=== PATIENT | female | born 1945 | race African-American/Black ===

== ENCOUNTER 2016-07-16 01:01 | Inpatient (IN) | payer OTHER ==
--- NOTE | 2016-07-16 01:34 | PROVIDER DOCUMENTATION ---
HPI-Chest Pain - General Source: patient - History of Present Illness-CP Location: reports: other (left sided) Chest Pain Radiation: reports: no radiation Quality of Pain: reports: aching Severity in ED: mild Onset/Duration: 3 days ago Timing: still present Context/Activities at Onset: reports: none Modifying Factors: improves with: lying down (laying down flat makes it worse) Associated Symptoms: reports: shortness of breath Nitro Today/Relief: no nitro taken today Aspirin Treatment Today: no aspirin today Prior Chest Pain/Cardiac Workup: reports: no prior chest pain, no prior cardiac workup Similar Symptoms Previously?: No Recently Seen Here or By Another Healthcare Provider: No <Rolly Mcclendon - Last Filed: 07/16/16 02:29> <Leandro Leon - Last Filed: 07/16/16 03:36> - General Chief Complaint: Chest Pain Stated Complaint: CHEST PAIN Time Seen by Provider: 07/16/16 01:15 Allergies/Adverse Reactions: Patient Allergies Allergy/AdvReac Type Severity Reaction Status Date / Time No Known Allergies Allergy Verified 07/16/16 02:34 - History of Present Illness-CP Nature of Presenting Problem: 71 y/o F presents to the ED c/o left sided chest pain and shortness of breath. onset x3 days ago. denies sob, cough, fever and all other symptoms. no prior cardiac workup. hx of diabetes. no other voiced complaints. (Rolly Mcclendon) Review of Systems - Adult - REVIEW OF SYSTEMS - ADULT Constitutional: denies: chills, fever Eyes: reports: no symptoms reported Ears, Nose, Mouth & Throat: denies: sinus problem, throat pain Cardiovascular: reports: chest pain. denies: syncope Respiratory: reports: shortness of breath. denies: wheezing Gastrointestinal: denies: diarrhea, nausea, vomiting Genitourinary: denies: dysuria, frequency Musculoskeletal: denies: back pain, neck pain Integumentary: denies: itching, rash Neurological: denies: dizziness/vertigo, headache/migraines Psychiatric: reports: no symptoms reported Endocrine: reports: no symptoms reported Hematologic/Lymphatic: reports: no symptoms reported Allergic/Immunologic: reports: no symptoms reported <Rolly Mcclendon - Last Filed: 07/16/16 02:29> Past History - Adult - PAST MEDICAL HISTORY-ADULT Review of Records: reports: Nursing Assessment Review, Medications Reviewed, Social history reviewed & non-contributory. Major Childhood Illnesses: reports: denies history Cardiovascular: reports: HTN Respiratory: reports: denies history Gastrointestinal: reports: denies history Genitourinary: reports: denies history Musculoskeletal: reports: denies history Neurological: reports: denies history Psychiatric: reports: denies history Endocrine/Immune: reports: Diabetes Other Conditions: reports: denies history - PRIOR SURGERIES/PROCEDURES Surgical/Procedure History: reports: hysterectomy - IMMUNIZATION STATUS Childhood Immunizations: See Nurse Assessment Flu Vaccine: See Nurse Assessment - SOCIAL HISTORY Smoking: denies Substance Use: none/never <Rolly Mcclendon - Last Filed: 07/16/16 02:29> Physical Exam-General - PHYSICAL EXAM-ADULT Initial Vital Signs Reviewed: Yes - CONSTITUTIONAL General Appearance: alert, no apparent distress - EYES Eyes: PERRL/EOMI, pink conjunctivae - HEAD, EARS, NOSE, MOUTH & THROAT HENMT: moist mucous membranes, normal ENT inspection - NECK Neck: full range of motion, normal inspection - RESPIRATORY Respiratory: no respiratory distress, decreased breath sounds (no breath sounds on left), other (left side chest wall tenderness to palpation) - CARDIOVASCULAR Cardiovascular: normal peripheral pulses, regular rate, rhythm - GASTROINTESTINAL (ABDOMEN) Abdominal Exam: normal bowel sounds, non tender, soft - MUSCULOSKELETAL Extremity: normal inspection, no pedal edema, normal capillary refill - SKIN Integumentary: normal color, warm/dry - NEUROLOGIC Neurologic: grossly normal, no motor/sensory deficits - PSYCHIATRIC Psych/Mental Status: normal mood/affect, oriented x 3 <Rolly Mcclendon - Last Filed: 07/16/16 02:29> Progress - EKG 1 Time of EKG reading by physician:: 01:18 EKG Read and Signed by:: Leandro Leon EKG Interpretation (*Must complete 3 of following elements*): Abnormal Rate: 56 Rhythm: sinus bradycardia [place]: normal ST Wave: non-specific ST changes - XRAY 1 XRAY Study: Chest Impression: Abnormal XRAY Interpretation: left upper lobe pneumothorax <Rolly Mcclendon - Last Filed: 07/16/16 02:29> - CT/MRI 1 CT Study: Thorax (60% PNEUMO W 6.5CM BLEB) - CONSULTS/PCP/HOSPITALIST Notification #1 *Consult/PCP/Hospitalist*: CANDE Time Discussed: 03:30 Consult Disposition: Will see in ED <Leandro Leon - Last Filed: 07/16/16 03:36> Departure <Rolly Mcclendon - Last Filed: 07/16/16 02:29> - Departure Time of Disposition Order: 03:35 Certified Medical Emergency: Emergent <Leandro Leon - Last Filed: 07/16/16 03:36> - Departure DIAGNOSIS: Pneumothorax on left Disposition: ADMITTED INPATIENT 09 Condition: Fair Referrals: None,PCP [Primary Care Provider] - Attestation - Scribe Verification/Attestation Scribe:: Rolly Mcclendon Acting as Scribe for:: Leandro Leon Scribe documention review:: This chart was documented by a scribe and accurately reflects the service the provider performed and the decisions made by the provider. <Rolly Mcclendon - Last Filed: 07/16/16 02:29> Physician Attestation
[2016-07-16 01:46] LABS: MANUAL DIFF NEEDED? NO
--- NOTE | 2016-07-16 01:54 | EKG Report ---
Test Performed on : 07/16/2016 01:18:51 AM Test Reason : cp Blood Pressure : / mmHG Vent. Rate : 056 BPM Atrial Rate : 056 BPM P-R Int : 132 ms QRS Dur : 060 ms QT Int : 432 ms P-R-T Axes : 080 076 059 degrees QTc Int : 416 ms Sinus bradycardia. Nonspecific ST abnormality Abnormal ECG No previous ECGs available Unconfirmed Result
[2016-07-16 02:13] LABS: AGAP 11; ALBUMIN 4.3 g/dL (3.5-5.0); ALKALINE PHOSPHATASE 55 U/L (32-104); BUN 13 mg/dL (8-22); CALCIUM 9.8 mg/dL (8.8-10.2); CHLORIDE 104 mmol/L (98-107); COSMO 279; GOT 19 U/L (10-30); GPT 22 U/L (10-36); POTASSIUM 4.1 mmol/L (3.5-5.1); SODIUM 140 mmol/L (136-145); TCO2 26 mmol/L (25-35); TOTAL PROTEIN 6.4 g/dL (6.3-8.3)
[2016-07-16 02:14] LABS: BASO% 0.4 % (0.0-0.8); EOS# 0.22 X1000 (0.0-0.7); HEMATOCRIT 39.3 % (37.0-47.0); IMM GRAN# 0.03 X1000 (0.0-0.04); IMM GRAN% 0.3 % (0.0-0.5); LYMPH# 3.47 X1000 (1.2-3.4); LYMPH% 31.1 % (20.5-51.1); MCH 29.7 PG (27-31); MCHC 33.1 g/dL (33-37); MCV 89.9 FL (81-99); MONO# 0.92 X1000 (0.11-0.59); MONO% 8.2 % (1.7-9.3); MPV 10.5 FL (7.4-10.4); PLT 242 X1000 (130-400); RBC 4.37 XMIL (4.2-5.4)
[2016-07-16] MEDS ORDERED: MORPHINE IV ONE ×2 (02:18→04:59)
[2016-07-16] MEDS ORDERED: SODIUM CHLORIDE 0.9% INJ ONE (02:18)
[2016-07-16] MEDS ORDERED: PHENERGAN IV ONE (02:18)
[2016-07-16] MEDS ORDERED: XYLOCAINE-MPF 1% 0 ML ONE (04:19)
[2016-07-16] MEDS ORDERED: XYLOCAINE-MPF 1%/EPI 1:200,000 ONE (04:20)
[2016-07-16] MEDS ORDERED: APRESOLINE ONE (05:02)
[2016-07-16] MEDS ORDERED: APRESOLINE IV ONE (05:03)
[2016-07-16] MEDS ORDERED: MORPHINE ONE (05:03)
[2016-07-16] MEDS ORDERED: VASOTEC IV ONE (05:03)
[2016-07-16] MEDS ORDERED: VASOTEC ONE (05:04)
[2016-07-16] MEDS ORDERED: ZOFRAN IV PRN (05:25)
--- NOTE | 2016-07-16 05:36 | OPERATIVE NOTE ---
PROCEDURE DATE: 07/16/2016 PREOPERATIVE DIAGNOSIS: Left pneumothorax. POSTOPERATIVE DIAGNOSIS: Left pneumothorax. PRINCIPLE PROCEDURE: Placement of #32-Zambian left chest tube. SURGEON: Gayle Salgado MD. ANESTHESIA: Local. ESTIMATED BLOOD LOSS: 10 mL. DRAINS: None. INDICATIONS: Opal Stinson is a 71-year-old morbidly obese, black female who has had previous left lung surgery in 1986. She presented with a history of 3 days of chest pain and a chest x-ray which documented a 60% pneumothorax but also a bleb involving her remaining lung. She did not have much shortness of breath but she was symptomatic with chest pain. We felt we needed to place a chest tube. DESCRIPTION OF PROCEDURE: The patient was in the emergency department at [facility]. We placed her in the sitting position on her stretcher and her left chest was prepped and draped within the sterile field. It appeared that her lung could have been scarred inferiorly, posteriorly and laterally. She also had this large bleb by CT scan and chest x-ray so I decided to place a chest tube more superior and anterior on her chest and kind of above her breast. She had a well-healed left thoracotomy scar. We used 1% lidocaine with epinephrine for local anesthetic. I made a small incision above her breast anteriorly on her chest and with a 10 blade scalpel. Then, I used Marques scissors to go above the rib and entered the chest. We did get a gush of air and I placed a 32-Zambian chest tube with the help of a Shruthi clamp above the rib into the left chest and directed it superiorly and anteriorly. I secured it to the skin with 0 silk stitch and dressing was applied. We got a postprocedure chest x-ray and it seemed like her pneumothorax had improved. We did not have a persistent air leak. She tolerated the procedure well. Plans are to keep this chest tube on - 20 cm of suction and admit her to the hospital.
--- NOTE | 2016-07-16 05:37 | HISTORY AND PHYSICAL ---
DATE OF ADMISSION: 07/16/2016 HISTORY OF PRESENT ILLNESS: Ms. Opal Stinson is a 71-year-old, black female who has a history of left lung surgery in 1986. It is unclear of why she had that lung surgery. She presented to [facility] emergency department with a 3-day history of increasing left chest pain and some shortness of breath. A chest x-ray documented a pneumothorax and this was confirmed with a chest CT scan. It was about a 60% pneumothorax. We were asked to see her. PAST MEDICAL HISTORY: Depression, diabetes, obesity. MEDICATIONS: Unknown. ALLERGIES: No known drug allergies. SOCIAL HISTORY: Her was present. She lives here in [place]. She does not smoke. REVIEW OF SYSTEMS: A 14-point review of systems was performed and was essentially negative except for the history of present illness. FAMILY HISTORY: Noncontributory. PHYSICAL EXAMINATION: General: On examination, Ms. Stinson is a pleasant, older, black female who is overweight. She was in no acute distress. HEENT Examination: She dyes her hair red. She had no jaundice, no oral lesions. No cervical or supraclavicular lymphadenopathy. Heart: Had a regular rate. It was slow. Respiratory: She had decreased breath sounds on the left. She had normal right lung breath sounds. Abdomen: Was protuberant but not tender. No costovertebral tenderness. Rectal/Vaginal: Examinations were not performed. Extremities: She does have palpable peripheral pulses. No peripheral edema. Neurological: She is alert, oriented x3, and appropriate. IMPRESSION: Left pneumothorax in a lady who has had previous left lung surgery years ago. She also has a large bleb involving her remaining lung tissue. She is obese. PLAN: We will place an anterior chest tube in the emergency department using local anesthetic. I have discussed the procedure in detail with the patient and her including the need for a chest tube and its risks of bleeding and infection. They understand the need for the chest tube and want to proceed.
--- NOTE | 2016-07-16 07:30 | Diag Imaging Result Document ---
PROCEDURE NAME: CHEST-PORTABLE - 07/16/2016 AP PORTABLE CHEST, 07/16/2016 AT 0447 HOURS: FINDINGS: There is a left chest tube. There is subsegmental atelectasis in the upper and lower lobes on the left. The right lung is stable in appearance since the previous study at 0228 hours. The pneumothorax on the left appears to be evacuated, however, there is some soft-tissue emphysema in the left chest wall. IMPRESSION: Chest tube placement with evacuation of the pneumothorax on the left. Continued atelectasis in the left upper and lower lobes.
--- NOTE | 2016-07-16 08:10 | Diag Imaging Result Document ---
PROCEDURE NAME: CHEST-2 VIEWS - 07/16/2016 TWO VIEWS OF THE CHEST: FINDINGS: There is a large pneumatocele or bulla present posteriorly in the left lower lobe. There is a large apical pneumothorax with some pneumothorax also subpulmonic posteriorly. The right lung is clear. There are no previous studies. The patient has subsequently undergone placement of a left chest tube. IMPRESSION: Left pneumothorax and large pneumatocele.
--- NOTE | 2016-07-16 08:26 | PROGRESS NOTE ---
DATE: 07/16/2016 SUBJECTIVE: Ms. Opal Stinson, early this morning I placed an anterior left chest tube in the emergency department at [place] for a 60% pneumothorax. She has had a history of left thoracotomy in [address] [facility] Emergency Department with left chest pain and some shortness of breath. She underwent a CT scan of her chest and also a chest x-ray which documented this pneumothorax and I placed a 32-Vincentian chest tube anteriorly. Postprocedure film documented that the pneumothorax had resolved. There was no ongoing air leak from the chest tube and its placement seemed to be satisfactory. We felt we should transfer her to [facility] for further care of her chest tube and in case I had to bring her to surgery to manipulate this chest tube or place another 1. I reviewed her films this morning with Dr. Bennett, our radiologist. PLAN: I will give her a diet. I will take her chest tube off suction because there is no air leak. We will repeat a chest x-ray either this afternoon or in the morning and decide what to do with her chest tube.
[2016-07-16] MEDS: MORPHINE IV PRN ×3 (08:28→21:11)
--- NOTE | 2016-07-16 08:37 | Diag Imaging Result Document ---
PROCEDURE NAME: CT THORAX W/O CONTRAST - 07/16/2016 CT OF THE CHEST WITHOUT CONTRAST: FINDINGS: There is a large left pneumothorax. This has been subsequently evacuated with a chest tube. There is a fairly large thin-walled air-containing cystic lesion in the left lower lobe. There are multiple surgical clips in the wall of this cyst and it may be a pneumatocele secondary to previous trauma or surgery. Some mild pleural thickening is present in the apex. There is also some compressive atelectasis adjacent to the pneumatocele. Small loculations of gas are seen in the inferolateral left pleural space. The right lung is essentially clear. There is an accessory fissure dividing the right lower lobe. There is a small pericardial effusion seen anterior to the right ventricle. There are some calcifications in the left anterior descending artery. There is no evidence of significant adenopathy. The regional skeleton appears to be intact. There are no previous studies. IMPRESSION: Pneumothorax and atelectasis on the left with what appears to be a pneumatocele at the left lower lobe.
[2016-07-16] MEDS: NORCO-7.5 PO PRN ×3 (10:31→22:30)
[2016-07-16] MEDS: NS 1,000 ML IV SCH (21:11)
[2016-07-17] MEDS: MORPHINE IV PRN (00:48)
[2016-07-17] MEDS: NS 1,000 ML IV SCH ×3 (05:29→14:02)
[2016-07-17] MEDS: NORCO-7.5 PO PRN ×4 (05:32→22:22)
--- NOTE | 2016-07-17 08:50 | Diag Imaging Result Document ---
PROCEDURE NAME: CHEST-2 VIEWS - 07/17/2016 PA AND LATERAL RADIOGRAPH OF THE CHEST: COMPARISON: 07/16/2016. FINDINGS: The left chest tube remains in place. However, the pneumothorax that was not perceptible on the most recent prior study after insertion of the chest tube is now larger. It probably occupies at least 40% of the left hemithorax. There is a large posterior air-filled bleb seen on previous studies as well. This air-filled bleb along with the pneumothorax probably occupies at least 70% of the left hemithorax. The right lung is unchanged. Cardiac silhouette is stable. IMPRESSION: Interval significant increase in size of the left-sided pneumothorax as described.
--- NOTE | 2016-07-17 16:49 | PROGRESS NOTE ---
DATE: 07/17/2016 Ms. 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 I did this in the emergency department at [facility]. It was a difficult placement because the patient's obesity and she had previous left thoracotomy. However, the tube resolved her pneumothorax and we transferred her from [place] to [facility] so that I could watch her chest tube more closely. This morning she had a repeat chest x-ray because we had placed her tube on water seal and her pneumothorax recurred. She is now symptomatic with shortness of breath and I am not convinced that the chest tube I placed yesterday is functional, although with chest x-ray it appears to be in the left chest. We placed it back on suction but that did not improve her symptoms. We will repeat a chest x-ray. But if she still has a pneumothorax, I need to change out the chest tube and we will plan to do this in the OR where she will be more comfortable. I have discussed this with the patient and her family at the bedside.
[2016-07-17] MEDS ORDERED: DIPRIVAN 1% ONE (16:55)
[2016-07-17] MEDS ORDERED: XYLOCAINE 1%/EPI 1:100,000 ONE (17:01)
--- NOTE | 2016-07-17 17:04 | Diag Imaging Result Document ---
PROCEDURE NAME: CHEST-PORTABLE - 07/17/2016 PORTABLE CHEST: COMPARISON: Comparison is made to the study performed earlier. FINDINGS: I believe the left-sided chest tube has been repositioned. There is an apical pneumothorax measuring 4 cm superiorly. Atelectasis or fibrosis is found in the left base. The heart is not enlarged. The right lung remains clear. IMPRESSION: Interval improvement with decrease in this moderate-sized left-sided pneumothorax.
[2016-07-17] MEDS ORDERED: KEFZOL 1 GM/D5W 50 ML ONE (17:14)
[2016-07-17] MEDS ORDERED: CLAVE SECONDARY SET 11953 ONE (17:17)
[2016-07-17] MEDS ORDERED: NS 0 ML ONE (18:46)
--- NOTE | 2016-07-17 19:26 | OPERATIVE NOTE ---
PROCEDURE DATE: 07/17/2016 PREOPERATIVE DIAGNOSIS: Left pneumothorax. POSTOPERATIVE DIAGNOSIS: Left pneumothorax. PROCEDURES PERFORMED: 1. Removal of nonfunctional left chest tube. 2. Placement of a new #32-Czech left chest tube. SURGEON: Gayle Salgado MD ANESTHESIA: Local with IV sedation. ESTIMATED BLOOD LOSS: 10 mL. DRAINS: A 32-Czech chest tube, left chest. INDICATIONS: Ms. Opal Stinson is a 71-year-old morbidly obese black female whom I initially evaluated in the summons server yesterday. She is at [facility] with as a spontaneous left pneumothorax and it was symptomatic with shortness of breath and chest pain. She has had a previous left thoracotomy for what she describes as a lung nodule in 1986. It looks like she has had some type of lung resection. She had a pneumothorax and, in the ER, I placed an anterior chest tube above her large left breast, and she was transferred to [facility] so that I could care for her more closely. Today, on water seal, her pneumothorax recurred and she was again symptomatic and I was uncomfortable about the function of this chest tube. There was no oscillation of the fluid in to Thora-Klex, and I felt like the chest tube might be nonfunctional, despite a chest x-ray that suggested it was in the left chest. I therefore recommended that we removed this tube and place another chest tube. I wanted to do this in the operating room because it is difficult to place these chest tubes in a patient with previous left thoracotomy and her being overweight. It was difficult to do this comfortably in the emergency department yesterday morning. FINDINGS: I felt that the anterior chest tube was more in the subcutaneous tissue than it was in the left chest and it was nonfunctional and I removed it. I placed a new left chest tube in the anterior axillary line, left chest, and the postprocedure chest x-ray documented lower reinflation of the lung. I felt it was in the left chest and functional. She did have a small air leak. DESCRIPTION OF PROCEDURE: The patient was brought to the operating room. She was put on the operating room table, placed in the semisitting position, and her left chest was prepped and draped within a sterile field. She received IV sedation. I used a local anesthetic at our incision site. I removed the old chest tube prior to any prepping and draping of her left chest and then I made a new incision just lateral to the pectoralis major muscle on the left anterior axillary line and, using Marques scissors, I bluntly dissected through the subcutaneous tissue to the muscle and entered her left chest. I was then able the place, under feel, a #32-Czech chest tube into the left chest and directed it superiorly and anteriorly. I secured it at the 8 cm position with 0 silk stitches. Dressings were applied. The chest tube was hooked to suction and I got a postprocedure chest x-ray while she is still in the operating room, and was satisfied that the chest tube was functional and was in a decent place, although the sentinel or proximal hole of the left chest tube probably was just inside the chest. She will go to the recovery room and then return to the floor. Her O2 saturation was 97% on O2 after the procedure. Clinically, she felt less short of breath with less chest pain.
[2016-07-17] MEDS: DUONEB (A & A) INH SCH ×2 (19:42→22:44)
[2016-07-17] MEDS: PERIDEX MT SCH (21:47)
[2016-07-18] MEDS: NORCO-7.5 PO PRN ×3 (05:24→21:44)
[2016-07-18] MEDS: LOVENOX SUBQ SCH (05:25)
[2016-07-18] MEDS: NS 1,000 ML IV SCH ×2 (05:25→21:44)
--- NOTE | 2016-07-18 07:28 | Diag Imaging Result Document ---
PROCEDURE NAME: CHEST-1 VIEW - 07/17/2016 PORTABLE CHEST X-RAY AT 1750 HOURS: COMPARISON: 1630 hours. FINDINGS: The left chest tube has apparently been manipulated. There is significant improvement in the large left pneumothorax. This has nearly completely resolved. There is stable cardiomegaly. There is worsening in the bibasilar infiltrates, right greater than left. IMPRESSION: Mixed changes from prior. Significant improvement in the left pneumothorax. Worsening bibasilar infiltrates.
[2016-07-18] MEDS: DUONEB (A & A) INH SCH ×5 (08:26→23:20)
--- NOTE | 2016-07-18 09:06 | PROGRESS NOTE ---
DATE: 07/18/2016 Ms. Opal Stinson underwent placement of a new left chest tube yesterday evening because the 1st tube I placed at [facility] Emergency Department I felt was nonfunctional. She is symptomatically much better as far as shortness of breath and chest pain. This morning she is sitting up eating breakfast. A chest x-ray this morning shows the chest tube in good place, although the most proximal opening of the chest tube is right at the ribs. Her left lung is re- expanded and it appears that she has an ongoing small air leak when studying the Thora-Klex. We need to restart her home medications. We will leave the chest tube on suction for now because of the ongoing air leak. I spoke with the patient and one of her sons who is out of state about her care.
[2016-07-18] MEDS ORDERED: LR 1,000 ML ONE (09:17)
[2016-07-18] MEDS ORDERED: ROBINUL ONE (09:17)
[2016-07-18] MEDS ORDERED: XYLOCAINE-MPF 2% ONE (09:17)
[2016-07-18] MEDS ORDERED: ANESTHESIA PB SET 88 IN 5742 ONE (09:17)
--- NOTE | 2016-07-18 09:21 | Diag Imaging Result Document ---
PROCEDURE NAME: CHEST-2 VIEWS - 07/18/2016 PA AND LATERAL RADIOGRAPH OF THE CHEST: COMPARISON: 07/17/2016. FINDINGS: The left chest tube is in stable position. The small residual left pneumothorax is approximately stable. There is better inspiration and the bibasilar infiltrates seen previously have improved. The large air-filled bleb seen on previous studies at the medial left mid to lower lung zone is again identified. It now contains a small air-fluid level. Cardiac silhouette is stable. IMPRESSION: 1. Interval improvement of bibasilar infiltrates. 2. Stable chest tube with a stable small residual pneumothorax.
[2016-07-18] MEDS: PERIDEX MT SCH ×2 (10:24→21:23)
[2016-07-18] MEDS: PRINIVIL PO SCH (10:24)
[2016-07-18] MEDS: GLUCOTROL PO SCH ×2 (10:25→21:23)
[2016-07-18] MEDS: LOPRESSOR PO SCH (10:25)
[2016-07-18] MEDS: MORPHINE IV PRN (10:25)
[2016-07-18] MEDS: GLUCOPHAGE PO SCH ×2 (10:25→21:23)
[2016-07-18] MEDS ORDERED: HUMULIN R SUBQ SCH (21:00)
[2016-07-18] MEDS ORDERED: HUMALOG SUBQ SCH (21:00)
[2016-07-18] MEDS: HUMULIN R SUBQ SCH (21:32)
[2016-07-19] MEDS: LOVENOX SUBQ SCH (06:27)
[2016-07-19] MEDS: NS 1,000 ML IV SCH (06:27)
[2016-07-19] MEDS: HUMULIN R SUBQ SCH ×3 (06:27→15:53)
[2016-07-19] MEDS: NORCO-7.5 PO PRN ×2 (06:33→14:28)
[2016-07-19] MEDS: DUONEB (A & A) INH SCH ×3 (07:45→15:41)
--- NOTE | 2016-07-19 08:58 | PROGRESS NOTE ---
DATE: 07/19/2016 Ms. Opal Stinson is a 71-year-old, overweight black female who had a spontaneous left pneumothorax and she has had a history of left thoracotomy in the past. I initially placed 1 chest tube anteriorly in the emergency department but that tube became nonfunctional and I had to place another left-sided chest tube on Saturday. Yesterday her chest x-ray showed expansion of her lung with good placement of the left chest tube. Symptomatically I thought she was better and we left that the chest tube on suction. Today I see no fluctuation within the Thora-Klex and no ongoing air leak. She still has some shortness of breath and her chest x-ray is pending. I hope that her lung remains inflated and the chest tube is functional. We will stop her maintenance IV fluid in hopes that she can move around easier. We have her back on all of her home medicine and her serum glucose has improved.
[2016-07-19] MEDS: PERIDEX MT SCH (09:13)
[2016-07-19] MEDS: PRINIVIL PO SCH (09:14)
[2016-07-19] MEDS: GLUCOTROL PO SCH (09:14)
[2016-07-19] MEDS: LOPRESSOR PO SCH (09:14)
[2016-07-19] MEDS: GLUCOPHAGE PO SCH (09:14)
--- NOTE | 2016-07-19 10:17 | Diag Imaging Result Document ---
PROCEDURE NAME: CHEST-2 VIEWS - 07/19/2016 CHEST X-RAY 2 VIEWS, 07/19/2016: COMPARISON: 07/18/2016. FINDINGS: Stable left chest tube. There is a trace left pneumothorax best seen at the left side of the aortic knob. Stable pneumatocele in the left lower lobe. The fluid level has drained out of this on today's exam. There is a small left pleural effusion. There is some patchy infiltrate at the right lung base similar to prior. Heart size remains enlarged. IMPRESSION: Tiny left pneumothorax. Interval resolution of the air-fluid level in the left lower lobe pneumatocele. Otherwise little change from prior.
[2016-07-19 15:45] VITALS: BP 169/64
[2016-07-19] MEDS: MORPHINE IV PRN (16:47)
--- NOTE | 2016-07-19 19:18 | PROGRESS NOTE ---
DATE: 07/19/2016 SUBJECTIVE: Ms. Opal Stinson is going on hospital day 4. I placed 2 separate left chest tubes in her. It is hard to keep these chest tubes positioned because of the amount of soft tissue she has in her large breasts. Today's chest x-ray showed that her lung was not quite as inflated as yesterday's films and symptomatically she is having some shortness of breath. I worked with a chest tube and pushed it and against her soft tissue this evening with improvement of her symptoms. This afternoon, I spoke with Dr. Persaud, a thoracic surgeon in [place] and asked for his help in caring for her because of her previous left thoracotomy, this large bleb and my difficulty in keeping her lung inflated despite placement of 2 chest tubes. I have sent him all her films, including the CT of her chest and her chest x-rays. I have spoken with him by phone and he has graciously agreed to transfer her to [facility]. I discussed this with the patient and her family. They were happy to go to [place] for further care, and I will be available for any local wound care or care that she may need.
--- NOTE | 2016-07-24 15:11 | DISCHARGE SUMMARY ---
ADMISSION DATE: 07/16/2016 DISCHARGE DATE: 07/19/2016 ADMITTING DIAGNOSIS: Spontaneous left pneumothorax. DISCHARGE DIAGNOSIS: Spontaneous left pneumothorax. PRINCIPAL PROCEDURE: Left chest tube x2. The first one was placed on 07/16/2016. The second one was placed on 07/17/2016. DISCHARGE DIET: Regular. DISCHARGE DISPOSITION: She was sent to [place] to a chest surgeon, Dr. Avilez for further evaluation and care. DISCHARGE MEDICATIONS: She is to return to her home medications. HOSPITAL COURSE: Ms. Opal Stinson is a 71-year-old, overweight, black female who has diabetes. She has a history of left thoracotomy in the past and presented to [facility] with chest pain and shortness of breath. A chest x-ray and a CT scan of the chest documented a 60% left pneumothorax which was symptomatic. She also had a large bleb involving the remaining lung tissue in the left chest. In the emergency department at [facility] I did place an anterior left chest tube and tried to avoid her breast and the soft tissue laterally. The chest tube was effective in re-expanding her lung and then we transferred her to [facility] for further care. On hospital day 2, I was concerned that the first chest tube was not functional and so I took her to the operating room where I could put in a chest tube more accurately and comfortably for the patient. I removed the anterior left chest tube and placed a more lateral left chest tube again above the breast anterior axillary line. We were happy with its position. It was functional and symptomatically she improved. She went to the recovery room and then to the floor. On hospital day 3 she did not have much of an air leak but we felt we should leave the tube at least 24 hours before placing a water seal or trying to remove it. However, on 07/19/2016 we were again concerned about the function of this new or second left chest tube. Because of her weight the tube would become nonfunctional and slip out into the soft tissue. We again worked with the chest tube to get it functional and symptomatically she improved. I spoke with Dr. Avilez, cardiothoracic surgeon in [place], because of the difficulty I was having in maintaining effective an chest tube and what to do about this spontaneous pneumothorax and the large bleb that she has on her lung status post left thoracotomy. Dr. Avilez was gracious enough to accept the patient in transfer and on the evening of 07/19/2016 she was taken to [facility] by ambulance with the left chest tube in place. I discussed her plan of care in detail with the patient's family and the patient. Patient's family included her and son.
== END 2016-07-19 19:20 | disposition short-term general hospital (02) | DRG 200 ==
LOC: P.ED 01:01 → 4N 05:47
PROVIDERS: ADMIT Surgery; ATTEND Surgery
PROC: 0W9B30Z Drainage of Left Pleural Cavity with Drainage Device, Percutaneous Approach (ICD-10-PCS; principal; 2016-07-16)
PROC: 0W9B30Z Drainage of Left Pleural Cavity with Drainage Device, Percutaneous Approach (ICD-10-PCS; 2016-07-17)
DX: J93.83 Other pneumothorax (principal); T85.628A Displacement of other specified internal prosthetic devices, implants and grafts, initial encounter; E11.9 Type 2 diabetes mellitus without complications; Z68.41 Body mass index [BMI] 40.0-44.9, adult; E66.01 Morbid (severe) obesity due to excess calories; J43.9 Emphysema, unspecified; I10 Essential (primary) hypertension; J95.812 Postprocedural air leak; Z79.899 Other long term (current) drug therapy; Z79.84 Long term (current) use of oral hypoglycemic drugs
CPT/HCPCS: 71010; 71020; 71250; 80053; 82948; 84484; 85025; 93005; 94640; 94761; 94799; 96374; 96375; 96376; J0360; J0690; J1650; J2270; J2405; J2550; J7030; J7120